=== PATIENT | female | born 1970 | race Caucasian/White ===

== ENCOUNTER 2016-10-06 10:54 | Outpatient (CLI) | payer OTHER ==
--- NOTE | 2016-10-06 11:47 | DIAGNOSTIC IMAGING REPORT ---
PROCEDURE: MG BILATERAL SCREENING W/CAD INDICATION: Screening. Family history breast carcinoma (maternal great-grandmother). TECHNIQUE: Bilateral CC and MLO digital views. COMPARISON: Compared to 09/30/2015, 08/15/2014, and 06/09/2013. FINDINGS: Computer-aided detection applied. Dense parenchymal pattern. No change. IMPRESSION: 1. Negative mammogram. RESULT CODE: 1- Negative. A. A negative report should not delay biopsy if a dominant or clinically suspicious mass is present. 10-15% of cancers are not identified by x-ray. B. A negative report may reinforce clinical impression. C. Adenosis and dense breasts may obscure an underlying neoplasm. D. False positive reports average 6-10%. E.. A yearly screening mammogram is recommended. A reminder letter will be scheduled.
== END 2016-10-06 23:00 ==
LOC: MAM SRH 10:54
DX: Z12.31 Encounter for screening mammogram for malignant neoplasm of breast (principal)